=== PATIENT | female | born 1970 | race Caucasian/White ===

== ENCOUNTER 2017-05-07 14:40 | Emergency (ER) | payer OTHER ==
[2017-05-07 14:47] VITALS: BMI 34.5
--- NOTE | 2017-05-07 15:08 | DR.GENAD ---
HPI - PCP Primary Care Physician: Umesh LATHAM - HPI Comment HPI Comment: CURRENTLY BEING WEAN FROM EFFIXOR. SHE WAS TOLD THAT BELOW SYMTOMS WILL OCCUR. TODAY, SYMTOMS WORSE. PCP WANTED HER EVALUATED. DENIES FEVER. NO SEIZURE REPORTED. - Complaint/Symptoms Chief Complaint Doctors Comments: NAUSEA, VOMITING AND DIZZINESS FOR SEVERAL DAYS. Chief Complaint:: PT. STATES HER DOCTOR HAS TAKEN HER OFF OF HER EFFEXOR, GRADUALLY AND PT. HAS BEEN EXPERIENCING DT'S. PT. WAS ORIGINALLY ON EFFEXOR 300MG PO DAILY AND THE DOCTOR DECREASED IT TO 150MG PO DAILY WEEK 1, WEEK 2 WAS 75MG PO DAILY, AND THEN THE 3RD WEEK WAS 75MG EVERY OTHER DAY. PT. STATES SHE HAS BEEN HAVING N/V/D, DIZZINESS, HYPOTENSION, BLURRED VISION. SHE REC'D FLUIDS IN Umesh LATHAM OFFICE LAST SUNDAY. Umesh LATHAM RECOMMENED FOR PT. TO COME TO THE ER TO HAVE LAB WORK DONE. - Nurses notes reviewed Nurses Notes Review: Yes - Source History Provided: Patient - Mode of Arrival Mode of Arrival: Ambulatory - Timing Onset of Chief Complaint: 05/02/17 Came on: Suddenly - Duration Duration: Constant Duration: Days - Severity Severity: Moderate PMH - PMH Past Medical History: Yes Past Medical History: Anxiety, GERD, Headaches, Seizures Past Medical History Comment: FIBROMYALGIA, TACHYCARDIA Past Surgical History: Yes Surgical History: Hysterectomy, Ortho Surgery, Other - Family History History of Family Medical Conditions: No - Social History Does patient currently use any type of tobacco product: No Have you used tobacco products in the last 12 months: No Type of Tobacco Use: None Does any household member use tobacco: No Alcohol Use: None Do you use any recreational Drugs:: No Lives With: Spouse Lives Where: Home - infectious screening In the last 2 months have you had wt loss of >10#?: NO Have you had fever, night sweats or hemotysis?: No Have you traveled outside the country in the last 6 months?: No Isolation: Standard ROS - Review of Systems Constitutional: Weakness, Fatigue. negative: Chills, Fever Eyes: No Symptoms Reported. negative: Eye Pain, Discharge ENTM: No Symptoms Reported. negative: Ear Pain, Nose Discharge, Nose Congestion , Throat Pain Respiratoy: No Symptoms Reported. negative: Productive Cough, Short of Breath, Wheezing, Hemoptysis Cardiovascular: No Symptoms Reported. negative: Chest Pain Gastrointestinal/Abdominal: Abdominal Pain, Nausea, Vomiting Genitourinary: No Symptoms Reported. negative: Dysuria, Frequency, Hematuria Neurological: Headache, Weakness, Dizziness Musculoskeletal: No Symptoms Reported, Muscle Pain Integumentary: No Symptoms Reported Hematologic/Lymphatic: No Symptoms Reported Endocrine: No Symptoms Reported All Other Systems: Reviewed and Negative PE - Vital Signs Vitals: Temperature 98.5 F Pulse Rate [Standing] 81 Pulse Rate [Sitting] 72 Pulse Rate [Lying] 73 Pulse Rate 77 Respiratory Rate 17 Blood Pressure [Left Arm] 93/50 Blood Pressure [Right Arm] 122/68 Blood Pressure [Standing] 117/69 Blood Pressure [Sitting] 115/64 Blood Pressure [Lying] 115/59 Blood Pressure 105/69 O2 Sat by Pulse Oximetry 99 - General Limitations: No Limitations General Appearance: Alert - Head Head Exam: Normal Inspection - Eyes Eye exam: Normal Appearance - ENT ENT Exam: Normal External Ear Exam External Ear Exam: Normal External Inspection TM/Canal Exam: Bilateral Normal Nose Exam: Normal Nose Exam Mouth Exam: Normal Inspection Throat Exam: Normal Inspection - Neck Neck Exam: Trachea Midline - Chest Chest Inspection: Symmetric Chest Wall Rise - Respiratory Respiratory Exam: Normal Lung Sounds Bilat Respiratory Exam: Bilateral Clear to Auscultation - Cardiovascular Cardiovascular Exam: Regular Rate, Normal Rhythm, Normal Heart Sounds - Abdominal Exam Abdominal Exam: Normal Bowel Sounds, Soft. negative: Tenderness - Extremities Extremities Exam: Normal Inspection - Back Back Exam: Normal Inspection - Neurologic Neurological Exam: Alert, Oriented X3 - Psychiatric Psychiatric Exam: Normal Affect, Normal Mood - Skin Skin Exam: Normal Color MDM - Additional Information Additional Information Obtained From: Family - Differential Diagnosis Differential Diagnosis: ABDOMINAL PAIN, NAUSEA/VOMITING, DIZZINESS Course - Treatment Treatment: SEE ORDERS. - Reevaluation 1st: Unchanged - Education/Counseling Education/Counseling: Patient, Family, Education Educated On: Diagnosis, Needs for Follow Up ROR - Labs Reviewed Laboratory Results Reviewed?: Yes Result Diagrams: 05/07/17 15:20 05/07/17 15:20 Laboratory: WBC 6.6 X10^3/uL (3.6-10.0) 05/07/17 15:20 RBC 4.26 X10^6/uL (3.5-5.4) 05/07/17 15:20 Hgb 12.4 g/dL (12.0-16.0) 05/07/17 15:20 Hct 37.2 % (36.0-47.0) 05/07/17 15:20 MCV 87.2 fL (80.0-100.0) 05/07/17 15:20 MCH 29.1 pg (27.0-34.0) 05/07/17 15:20 MCHC 33.3 g/dL (33.0-35.0) 05/07/17 15:20 RDW 14.0 % (11.6-16.5) 05/07/17 15:20 Plt Count 256 X10^3/uL (150.0-450.0) 05/07/17 15:20 MPV 8.0 fL (7.4-11.0) 05/07/17 15:20 Neut % 51.2 % (42.0-75.0) 05/07/17 15:20 Lymph % 41.2 % (21.0-51.0) 05/07/17 15:20 [place] % 5.6 % (0.0-13.0) 05/07/17 15:20 Eos % 1.3 % (0.9-2.9) 05/07/17 15:20 Baso % 0.7 % (0.2-1.0) 05/07/17 15:20 Neut # 3.4 x10^3/uL (2.2-4.8) 05/07/17 15:20 Lymph # 2.7 X10^3/uL (1.3-2.9) 05/07/17 15:20 [place] # 0.4 x10^3/uL (0.3-0.8) 05/07/17 15:20 Eos # 0.1 x10^3/uL (0.0-0.2) 05/07/17 15:20 Baso # 0.0 X10^3/uL (0.0-0.1) 05/07/17 15:20 Absolute Nucleated RBC 0.1 /100WBC 05/07/17 15:20 Sodium 142 mmol/L (136-145) 05/07/17 15:20 Corrected Sodium 143 mmol/L (136-145) 05/07/17 15:20 Potassium 3.7 mmol/L (3.5-5.1) 05/07/17 15:20 Chloride 104 mmol/L (98-107) 05/07/17 15:20 Carbon Dioxide 26.7 mmol/L (21-32) 05/07/17 15:20 BUN 9 mg/dL (7-18) 05/07/17 15:20 Creatinine 1.02 mg/dL (0.55-1.02) 05/07/17 15:20 Est GFR (MDRD) Af Amer > 60 (>60) 05/07/17 15:20 Est GFR (MDRD) Non-Af > 60 (>60) 05/07/17 15:20 Glucose 150 mg/dL (65-99) H 05/07/17 15:20 Calcium 8.9 mg/dL (8.5-10.1) 05/07/17 15:20 Corrected Calcium TNP 05/07/17 15:20 Total Bilirubin 0.30 mg/dL (0.2-1.0) 05/07/17 15:20 AST 19 Units/L (15-37) 05/07/17 15:20 ALT 24 Units/L (12-78) 05/07/17 15:20 Alkaline Phosphatase 23 Units/L (46-116) L 05/07/17 15:20 Total Protein 7.5 g/dL (6.4-8.2) 05/07/17 15:20 Albumin 3.6 g/dL (3.4-5.0) 05/07/17 15:20 Globulin 3.9 g/dL (2.5-4.5) 05/07/17 15:20 Albumin/Globulin Ratio 0.9 Ratio (1.1-2.1) L 05/07/17 15:20 Amylase 32 Units/L (25-115) 05/07/17 15:20 Lipase 162 Units/L (73-393) 05/07/17 15:20 Specimen Type Clean catch urine 05/07/17:29 Urine Color Pale yellow (YELLOW) 05/07/17: Urine Appearance Clear (CLEAR) 05/07/17 15:29 Urine pH 6.0 (5.0 - 8.0) 05/07/17 15:29 Ur Specific [place] 1.010 (1.000-1.030) 05/07/17 15:29 Urine Protein Negative (NEGATIVE) 05/07/17 15:29 Urine Glucose (UA) Negative (NEGATIVE) 05/07/17 15:29 Urine Ketones Negative (NEGATIVE) 05/07/17 15:29 Urine Occult Blood Negative (NEGATIVE) 05/07/17 15:29 Urine Nitrite Negative (NEGATIVE) 05/07/17 15:29 Urine Bilirubin Negative (NEGATIVE) 05/07/17 15:29 Urine Urobilinogen Normal (NORMAL) 05/07/17 15:29 Ur Leukocyte Esterase Negative (NEGATIVE) 05/07/17 15:29 Urine RBC None seen /HPF (NEGATIVE) 05/07/17 15:29 Urine WBC None seen /HPF (NEGATIVE) 05/07/17 15:29 Ur Squamous Epith Cells Rare /HPF (NEGATIVE) 05/07/17 15:29 Amorphous Sediment Trace /HPF (NEGATIVE) 05/07/17 15:29 Urine Bacteria Trace /HPF (NEGATIVE) 05/07/17 15:29 Ur Culture Indicated? No/not indicated 05/07/17 15:29 - Diagnosis Discharge Problem: Dizziness Abdominal pain Qualifiers: Abdominal location: generalized Qualified Code(s): R10.84 - Generalized abdominal pain Nausea & vomiting Qualifiers: Vomiting type: bilious vomiting Qualified Code(s): R11.14 - Bilious vomiting - Discharge Plan Disposition: HOME, SELF-CARE Condition: Stable - Follow ups/Referrals Follow ups/Referrals: LOREN LATHAM [Primary Care Provider] - 3 days - Instructions Instructions: Nausea and Vomiting, Adult, [id number], Abdominal Pain, Adult, [id number]
[2017-05-07 15:29] LABS: BASOPHILS % (AUTO) 0.7 % (0.2-1.0); EOSINOPHILS # (AUTO) 0.1 x10^3/uL (0.0-0.2); EOSINOPHILS % (AUTO) 1.3 % (0.9-2.9); HEMATOCRIT 37.2 % (36.0-47.0); HEMOGLOBIN 12.4 g/dL (12.0-16.0); LYMPHOCYTES # (AUTO) 2.7 X10^3/uL (1.3-2.9); LYMPHOCYTES % (AUTO) 41.2 % (21.0-51.0); MEAN CORPUSCULAR HEMOGLOBIN 29.1 pg (27.0-34.0); MEAN CORPUSCULAR HGB CONC 33.3 g/dL (33.0-35.0); MEAN CORPUSCULAR VOLUME 87.2 fL (80.0-100.0); MONOCYTES # (AUTO) 0.4 x10^3/uL (0.3-0.8); MONOCYTES % (AUTO) 5.6 % (0.0-13.0); NEUTROPHILS # (AUTO) 3.4 x10^3/uL (2.2-4.8); NEUTROPHILS % (AUTO) 51.2 % (42.0-75.0); PLATELET COUNT 256 X10^3/uL (150.0-450.0); RED BLOOD COUNT 4.26 X10^6/uL (3.5-5.4); WHITE BLOOD COUNT 6.6 X10^3/uL (3.6-10.0)
[2017-05-07 15:41] LABS: ALANINE AMINOTRANSFERASE 24 Units/L (12-78); ALBUMIN 3.6 g/dL (3.4-5.0); ALKALINE PHOSPHATASE 23 Units/L (46-116); AMYLASE 32 Units/L (25-115); ASPARTATE AMINO TRANSFERASE 19 Units/L (15-37); BLOOD UREA NITROGEN 9 mg/dL (7-18); CALCIUM 8.9 mg/dL (8.5-10.1); CARBON DIOXIDE 26.7 mmol/L (21-32); CHLORIDE 104 mmol/L (98-107); COR NA(FOR HYPERGLY) 143 mmol/L (136-145); CREATININE 1.02 mg/dL (0.55-1.02); LIPASE 162 Units/L (73-393); SODIUM 142 mmol/L (136-145); TOTAL PROTEIN 7.5 g/dL (6.4-8.2); eGFR BLACK RACES > 60 (>60); eGFR NON BLACK RACES > 60 (>60)
[2017-05-07 15:42] LABS: BILIRUBIN,URINE NEGATIVE (NEGATIVE); BLOOD/HEMOGLOBIN,URINE NEGATIVE (NEGATIVE); GLUCOSE, URINE NEGATIVE (NEGATIVE); KETONES,URINE NEGATIVE (NEGATIVE); LEUKOCYTE ESTERASE ,URINE NEGATIVE (NEGATIVE); NITRITES,URINE NEGATIVE (NEGATIVE); PROTEIN,URINE NEGATIVE (NEGATIVE); UROBILINOGEN,URINE NORMAL (NORMAL)
[2017-05-07 15:51] LABS: AMORPHOUS SEDIMENT,UR TRACE /HPF (NEGATIVE); APPEARANCE,URINE CLEAR (CLEAR); BACTERIA,URINE TRACE /HPF (NEGATIVE); COLOR,URINE PALE YELLOW (YELLOW); RBC,URINE NONE SEEN /HPF (NEGATIVE); SQUAMOUS EPITHELIAL CELL,UR RARE /HPF (NEGATIVE)
[2017-05-07 16:10] VITALS: BP 115/59
== END 2017-05-07 16:20 | disposition home or self-care (01) ==
LOC: ER 14:51
DX: R11.14 Bilious vomiting (principal); R10.84 Generalized abdominal pain; R42 Dizziness and giddiness
CPT/HCPCS: 36415; 80053; 81001; 82150; 83690; 85025; 99282

== ENCOUNTER → 2017-06-19 | Outpatient (CLI) | payer OTHER ==
--- NOTE | 2017-06-22 14:57 | MG ---
HISTORY: SCREENING Comparison: August 12, 2008 and December 27, 2015 FINDINGS: Bilateral CC and MLO projections of the right and left breast were obtained. Scattered fibroglandula r tissue is seen to be present with overall diffuse increased density bilaterally as compared to the priors most compatible with weight loss but with possible underlying developing asymmetry at 12 o'trevon ck on the right with similar but less prominent findings on the left as well where there are interven ing foci of lucency but with a possible underlying nodule on the right with convex borders and for wh ich further imaging evaluation is recommended. There is no architectural distortion. No skin thicke jenny or nipple retraction is appreciated. No pathological lymphadenopathy can be identified. Benign -appearing calcifications are noted within the right and left breast. IMPRESSION: Possible developing asymmetry 12 o'clock right breast as detailed above for which follow -up spot compression and possibly ultrasound are recommended. ACR CATEGORY 0 - assessment incomplete; additional imaging recommended. Diagnostic CAD was utilized and reviewed. * 0 (ZERO) - ASSESSMENT INCOMPLETE; ADDITIONAL IMAGING IS NEEDED. * 1/1 (ONE) - NEGATIVE. * 2/II (TWO) - BENIGN FINDINGS. * 3/III (THREE) - PROBABLY BENIGN FINDING; SHORT INTERVAL FOLLOW-UP SUGGESTED. * 4/IV (FOUR) - SUSPICIOUS ABNORMALITY; BIOPSY SHOULD BE CONSIDERED. * 5/V - HIGHLY SUSPICIOUS OF MALIGNANCY; BIOPSY SHOULD BE PERFORMED. A NEGATIVE X-RAY REPORT SHOULD NOT DELAY BIOPSY IF A DOMINANT OR CLINICALLY SUSPICIOUS MASS IS PRESENT; 4 TO 8 PERCENT OF CANCERS ARE NOT IDENTIFIED BY X-RAY. A NEGA TIVE REPORT MAY REINFORCE THE CLINICAL IMPRESSION. ADENOSIS AND DENSE BREASTS MAY OBSCURE AN UNDERLY ING NEOPLASM. Reported By:
== END ==
LOC: RAD 09:17
PROVIDERS: ATTEND Nurse Practitioner
DX: Z12.31 Encounter for screening mammogram for malignant neoplasm of breast (principal); R92.8 Other abnormal and inconclusive findings on diagnostic imaging of breast
CPT/HCPCS: 77067

== ENCOUNTER → 2017-07-24 | Outpatient (CLI) | payer OTHER ==
--- NOTE | 2017-07-24 16:08 | US ---
HISTORY: Abnormal screening mammography with right breast developing asymmetry Right breast digital diagnostic mammography with CAD and right breast ultrasound. Comparison: Multiple previous exams dating back to 2008 FINDINGS: Mammogram: Spot compression and mL views of the right breast were obtained. Heterogeneously dense fi broglandular tissue is seen to be present with the previously described developing asymmetry dispersi ng with intervening foci of lucency without an underlying mass or architectural distortion and with f indings favored to be related to overall changes in glandular composition bilaterally but which will be correlated with ultrasound to exclude a more aggressive focal underlying lesion. There is no darryl nant suspicious mass or architectural distortion. No skin thickening or nipple retraction is appreci ated. No pathological lymphadenopathy can be identified. Benign-appearing calcifications are noted. Ultrasound: Multiple grayscale images were obtained at 12 o'clock. There is dense fibrocystic breast parenchyma without a suspicious cystic or solid nodule identified. IMPRESSION: NO RADIOGRAPHIC EVIDENCE OF MALIGNANCY. ACR CATEGORY 2 - benign findings. FOLLOW-UP EXAM 1 YEAR. Diagnostic CAD was utilized and reviewed. * 0 (ZERO) - ASSESSMENT INCOMPLETE; ADDITIONAL IMAGING IS NEEDED. * 1/1 (ONE) - NEGATIVE. * 2/II (TWO) - BENIGN FINDINGS. * 3/III (THREE) - PROBABLY BENIGN FINDING; SHORT INTERVAL FOLLOW-UP SUGGESTED. * 4/IV (FOUR) - SUSPICIOUS ABNORMALITY; BIOPSY SHOULD BE CONSIDERED. * 5/V - HIGHLY SUSPICIOUS OF MALIGNANCY; BIOPSY SHOULD BE PERFORMED. A NEGATIVE X-RAY REPORT SHOULD NOT DELAY BIOPSY IF A DOMINANT OR CLINICALLY SUSPICIOUS MASS IS PRESENT; 4 TO 8 PERCENT OF CANCERS ARE NOT IDENTIFIED BY X-RAY. A NEGA TIVE REPORT MAY REINFORCE THE CLINICAL IMPRESSION. ADENOSIS AND DENSE BREASTS MAY OBSCURE AN UNDERLY ING NEOPLASM. Reported By:
== END ==
LOC: RAD 12:42
PROVIDERS: ATTEND Nurse Practitioner Family
DX: N64.59 Other signs and symptoms in breast (principal)
CPT/HCPCS: 76642; 77065

== ENCOUNTER 2018-09-17 18:30 | Inpatient (IN) ==
[2018-09-17] MEDS ORDERED: HEPARIN SODIUM IN D5W 25,000 UNITS/500 ML BAG IV PRN (19:44)
[2018-09-17 20:09] VITALS: BMI 31.1
[2018-09-17 20:21] LABS: BASOPHILS % (AUTO) 0.6 % (0.2-1.0); EOSINOPHILS # (AUTO) 0.1 x10^3/uL (0.0-0.2); EOSINOPHILS % (AUTO) 1.9 % (0.9-2.9); HEMOGLOBIN 12.8 g/dL (12.0-16.0); LYMPHOCYTES # (AUTO) 1.7 X10^3/uL (1.3-2.9); LYMPHOCYTES % (AUTO) 24.1 % (21.0-51.0); MEAN CORPUSCULAR HEMOGLOBIN 28.7 pg (27.0-34.0); MEAN CORPUSCULAR HGB CONC 32.9 g/dL (33.0-35.0); MEAN PLATELET VOLUME 8.6 fL (7.4-11.0); MONOCYTES # (AUTO) 0.5 x10^3/uL (0.3-0.8); NEUTROPHILS # (AUTO) 4.7 x10^3/uL (2.2-4.8); NEUTROPHILS % (AUTO) 66.4 % (42.0-75.0); PLATELET COUNT 277 X10^3/uL (150.0-450.0); RED BLOOD COUNT 4.48 X10^6/uL (3.5-5.4); RED CELL DISTRIBUTION WIDTH 13.6 % (11.6-16.5); WHITE BLOOD COUNT 7.1 X10^3/uL (3.6-10.0)
[2018-09-17 20:28] LABS: ALANINE AMINOTRANSFERASE 21 Units/L (12-78); ALBUMIN 3.7 g/dL (3.4-5.0); ALKALINE PHOSPHATASE 22 Units/L (46-116); ASPARTATE AMINO TRANSFERASE 15 Units/L (15-37); BLOOD UREA NITROGEN 10 mg/dL (7-18); CALCIUM 9.1 mg/dL (8.5-10.1); CHLORIDE 107 mmol/L (98-107); CREATININE 0.97 mg/dL (0.55-1.02); SODIUM 143 mmol/L (136-145); TOTAL PROTEIN 7.4 g/dL (6.4-8.2); eGFR NON BLACK RACES > 60 (>60)
[2018-09-17] MEDS: NS 1000 ML 1,000 ML IV SCH (20:34)
[2018-09-17] MEDS ORDERED: HEPARIN SODIUM INJ 5000 UNITS ONE (21:12)
[2018-09-17] MEDS: HEPARIN SODIUM INJ 5000 UNITS IVP ONE ×2 (21:16→21:29)
[2018-09-17] MEDS: HEPARIN SODIUM IN D5W 25,000 UNITS/500 ML BAG IV PRN (21:18)
[2018-09-18] MEDS: NS 1000 ML 1,000 ML IV SCH ×3 (04:30→21:44)
[2018-09-18 04:35] LABS: BASOPHILS % (AUTO) 0.6 % (0.2-1.0); EOSINOPHILS # (AUTO) 0.1 x10^3/uL (0.0-0.2); EOSINOPHILS % (AUTO) 2.2 % (0.9-2.9); HEMOGLOBIN 10.9 g/dL (12.0-16.0); LYMPHOCYTES # (AUTO) 2.4 X10^3/uL (1.3-2.9); LYMPHOCYTES % (AUTO) 39.7 % (21.0-51.0); MEAN CORPUSCULAR HEMOGLOBIN 28.4 pg (27.0-34.0); MEAN CORPUSCULAR HGB CONC 32.1 g/dL (33.0-35.0); MEAN CORPUSCULAR VOLUME 88.5 fL (80.0-100.0); MEAN PLATELET VOLUME 8.6 fL (7.4-11.0); MONOCYTES # (AUTO) 0.6 x10^3/uL (0.3-0.8); MONOCYTES % (AUTO) 9.1 % (0.0-13.0); NEUTROPHILS % (AUTO) 48.4 % (42.0-75.0); PLATELET COUNT 259 X10^3/uL (150.0-450.0); RED BLOOD COUNT 3.84 X10^6/uL (3.5-5.4); RED CELL DISTRIBUTION WIDTH 13.4 % (11.6-16.5); WHITE BLOOD COUNT 6.1 X10^3/uL (3.6-10.0)
[2018-09-18 04:42] LABS: ALANINE AMINOTRANSFERASE 18 Units/L (12-78); ALKALINE PHOSPHATASE 18 Units/L (46-116); ASPARTATE AMINO TRANSFERASE 13 Units/L (15-37); BLOOD UREA NITROGEN 12 mg/dL (7-18); CALCIUM 8.3 mg/dL (8.5-10.1); CARBON DIOXIDE 24.6 mmol/L (21-32); CHLORIDE 108 mmol/L (98-107); COR CA(FOR HYPOALB) 9.1 mg/dL (8.5-10.1); COR NA(FOR HYPERGLY) 143 mmol/L (136-145); CREATININE 1.04 mg/dL (0.55-1.02); SODIUM 142 mmol/L (136-145); TOTAL PROTEIN 6.1 g/dL (6.4-8.2); eGFR NON BLACK RACES > 60 (>60)
[2018-09-18] MEDS ORDERED: POTASSIUM CHL 40 MEQ/NS 0.45% 500 ML IV PRN (06:31)
[2018-09-18] MEDS ORDERED: POTASSIUM CHL 60 MEQ/NS 0.45% 500 ML IV PRN (06:31)
[2018-09-18] MEDS ORDERED: KLOR-CON PO PRN (06:31)
[2018-09-18] MEDS ORDERED: K-DUR TAB 20 MEQ PO PRN (06:31)
[2018-09-18] MEDS ORDERED: POTASSIUM CHLORIDE LIQ 20 MEQ UDC PO PRN (06:31)
[2018-09-18] MEDS ORDERED: MICRO K EXTEN CAP 10 MEQ PO PRN (06:31)
[2018-09-18] MEDS ORDERED: K-RIDER 10 MEQ/NS 100 ML 10 MEQ/100 ML BAG IV PRN (06:31)
[2018-09-18] MEDS ORDERED: NS 250 ML IV 250 ML ONE (08:25)
[2018-09-18] MEDS: MAGNESIUM SULFATE 1 GRAM/100 mL PREMIX 1 GM/100 ML BAG IV PRN ×2 (08:30→09:34)
[2018-09-18] MEDS ORDERED: KLONOPIN TAB 1 MG PO PRN (10:59)
[2018-09-18] MEDS ORDERED: ZOFRAN TAB 4 MG PO PRN (10:59)
[2018-09-18] MEDS ORDERED: NORCO 10/325 TAB PO SCH (11:00)
[2018-09-18] MEDS ORDERED: CHOLECALCIFEROL PO SCH (11:00)
[2018-09-18] MEDS ORDERED: ZANAFLEX PO SCH (11:00)
[2018-09-18] MEDS ORDERED: DESYREL PO SCH (11:00)
[2018-09-18] MEDS ORDERED: KLONOPIN TAB 1 MG PO SCH (11:00)
[2018-09-18] MEDS ORDERED: PREDNISONE TAB 10 MG PO ONE (11:05)
[2018-09-18] MEDS ORDERED: PREDNISONE TAB 10 MG ONE (11:05)
[2018-09-18] MEDS ORDERED: PREDNISONE TAB 20 MG PO ONE ×2 (11:05)
--- NOTE | 2018-09-18 11:31 | DR.UPDATE ---
H&P Update History and Physical Update: History and Physical reviewed and patient examined. Changes noted: Yes with the following: PRESENTED TO THE OFFICE TODAY WITH COMPLAINTS OF SEVERE RIGHT ARM PAIN AND SWELLING. SHE DENIED FEVER, CHILLS, OR KNOWN INJURY. SHE WAS SENT FOR AN OUTPATIENT VENOUS DOPPLER WHICH REVEALED AN ACUTE DVT SEEN THROUGH THE RIGHT BASILIC VEIN. SHE WAS ADMITTED FOR FURTHER EVALUATION AND TREATMENT OF DVT AND STARTED ON A HEPARIN DRIP. A H&P WAS COMPLETED IN THE OFFICE TODAY. PATIENT HAS BEEN SEEN AND EXAMINED WITH NO OTHER CHANGES NOTED TO H&P.
[2018-09-18] MEDS: ASPIRIN 81 MG CHEWTAB PO SCH (12:08)
[2018-09-18] MEDS: BENTYL CAP 10 MG PO SCH ×4 (12:09→20:03)
--- NOTE | 2018-09-18 12:14 | PCM.PROG ---
Progress Note - Progress Note for Day of Date of Exam: 09/18/18 - Subjective Subjective: WAS ADMITTED FOR A RIGHT UPPER EXTREMITY DVT. TODAY, SHE IS ALERT AND ORIENTED, LYING IN BED ON MORNING ROUNDS. SHE CONTINUES WITH COMPLAINTS OF RIGHT ARM PAIN AND SHORTNESS OF BREATH. ON EXAMINATION, HEART IS REGULAR IN RATE AND RHYTHM. BILATERAL LUNGS ARE NOTED WITH DIMINISHED LUNG SOUNDS THROUGHOUT. ABDOMENT IS ROUND, SOFT, AND NON-TENDER WITH NORMAL BOWEL SOUNDS NOTED IN ALL QUADRANTS. RIGHT UPPER ARM IS NOTED WITH REDNESS AND SWELLING. IT IS TENDER TO PALPATION. HER VITALS THIS MORNING ARE 98.7-75-15-99%-95/54. ABNORMAL LAB VALUES TODAY INCLUDE THE FOLLOWING: HGB 10.9, HCT 34.0, PTT 119.6, POTASSIUM 3.3, CHLORIDE 108, CREATININE 1.04, GLUCOSE 151, CALCIUM 8.3, TOTAL BILI 0.10, ALK PHOS 18, TOTAL PROTEIN 6.1, ALBUMIN 3.0. SHE HAS BEEN HYPOTENSIVE THROUGHOUT THE NIGHT. TODAY, WE WILL RESUME HOME MEDICATIONS WITH THE EXCEPTION OF HER BLOOD PRESSURE MEDICATIONS. WE WILL OBTAIN A CHEST CT WITH CONTRAST TO RULE OUT PE. SHE IS ALLERGIC TO IODINE, THEREFORE, WE WILL HAVE TO DO THE 13 HOUR PREDNISONE PREP. OTHERWISE, WE WILL CONTINUE WITH THE IV HEPARIN DRIP. WE WILL FOLLOW UP WITH AM LABS AND CONTINUE TO [facility]. - Past Medical Family Social History Past Med/Fam/Surg Hx: No changes since H&P Allergies: Allergies ciprofloxacin [From Cipro] Allergy (Verified 05/07/17 14:46) codeine Allergy (Verified 05/07/17 14:46) iodine Allergy (Verified 05/07/17 14:46) Sulfa (Sulfonamide Antibiotics) Allergy (Verified 05/07/17 14:46) - Review of Systems ROS: No change since H&P - Vital Signs and I&O's Vital Signs: Temperature 98.2 F Pulse Rate [Bilateral Radial] 81 Respiratory Rate 19 Blood Pressure [Left Arm] 103/57 Blood Pressure [Right Arm] 122/68 Blood Pressure [Standing] 117/69 Blood Pressure [Sitting] 115/64 Blood Pressure [Lying] 115/59 Blood Pressure 115/59 O2 Sat by Pulse Oximetry 93 Intake and Output: Intake & Output 09/16/18 09/17/18 09/18/18 09/19/18 11:59 11:59 11:59 11:59 Intake Total 2724.2 / 2724.2 600 / 600 Balance 2724.2 / 2724.2 600 / 600 - Physical Exam Oriented: Normal Eyes: Normal Ear: Normal Nose: Normal Throat: Normal Respiratory: Generalized, Diminished Cardiovascular: Normal. negative: S3, S4, Edema : Normal Auscultation: Bowel Sounds: Normal Palpation: Normal Tenderness: Normal Skin: Red (RIGHT UPPER ARM ), Tender Musculoskeletal: Right, Arm, Swelling, Tender Psychiatric: Normal Mood Description: Calm Affect: Normal Speech Pattern: Clear - Laboratory and Diagnostics Result Diagrams: 09/18/18 04:20 09/18/18 04:20 Labs: Laboratory WBC 6.1 X10^3/uL (3.6-10.0) 09/18/18 04:20 RBC 3.84 X10^6/uL (3.5-5.4) 09/18/18 04:20 Hgb 10.9 g/dL (12.0-16.0) L 09/18/18 04:20 Hct 34.0 % (36.0-47.0) L 09/18/18 04:20 MCV 88.5 fL (80.0-100.0) 09/18/18 04:20 MCH 28.4 pg (27.0-34.0) 09/18/18 04:20 MCHC 32.1 g/dL (33.0-35.0) L 09/18/18 04:20 RDW 13.4 % (11.6-16.5) 09/18/18 04:20 Plt Count 259 X10^3/uL (150.0-450.0) 09/18/18 04:20 MPV 8.6 fL (7.4-11.0) 09/18/18 04:20 Neut % (Auto) 48.4 % (42.0-75.0) 09/18/18 04:20 Lymph % (Auto) 39.7 % (21.0-51.0) 09/18/18 04:20 [place] % (Auto) 9.1 % (0.0-13.0) 09/18/18 04:20 Eos % (Auto) 2.2 % (0.9-2.9) 09/18/18 04:20 Baso % (Auto) 0.6 % (0.2-1.0) 09/18/18 04:20 Neut # (Auto) 3.0 x10^3/uL (2.2-4.8) 09/18/18 04:20 Lymph # (Auto) 2.4 X10^3/uL (1.3-2.9) 09/18/18 04:20 [place] # (Auto) 0.6 x10^3/uL (0.3-0.8) 09/18/18 04:20 Eos # (Auto) 0.1 x10^3/uL (0.0-0.2) 09/18/18 04:20 Baso # (Auto) 0.0 X10^3/uL (0.0-0.1) 09/18/18 04:20 Absolute Nucleated RBC 0.0 /100WBC 09/18/18 04:20 INR Target Range - 09/17/18 20:01 INR 1.01 (0.8-1.3) 09/17/18 20:01 APTT 119.6 SECONDS (22.9-36.5) H 09/18/18 04:20 PTT Comment - 09/18/18 04:20 Sodium 142 mmol/L (136-145) 09/18/18 04:20 Corrected Sodium 143 mmol/L (136-145) 09/18/18 04:20 Potassium 3.3 mmol/L (3.5-5.1) L 09/18/18 04:20 Chloride 108 mmol/L (98-107) H 09/18/18 04:20 Carbon Dioxide 24.6 mmol/L (21-32) 09/18/18 04:20 BUN 12 mg/dL (7-18) 09/18/18 04:20 Creatinine 1.04 mg/dL (0.55-1.02) H 09/18/18 04:20 Est GFR (MDRD) Af Amer > 60 (>60) 09/18/18 04:20 Est GFR (MDRD) Non-Af > 60 (>60) 09/18/18 04:20 Glucose 151 mg/dL (65-99) H 09/18/18 04:20 Calcium 8.3 mg/dL (8.5-10.1) L 09/18/18 04:20 Corrected Calcium 9.1 mg/dL (8.5-10.1) 09/18/18 04:20 Magnesium 1.7 mg/dL (1.7-2.9) 09/18/18 04:20 Total Bilirubin 0.10 mg/dL (0.2-1.0) L 09/18/18 04:20 AST 13 Units/L (15-37) L 09/18/18 04:20 ALT 18 Units/L (12-78) 09/18/18 04:20 Alkaline Phosphatase 18 Units/L (46-116) L 09/18/18 04:20 Total Protein 6.1 g/dL (6.4-8.2) L 09/18/18 04:20 Albumin 3.0 g/dL (3.4-5.0) L 09/18/18 04:20 Globulin 3.1 g/dL (2.5-4.5) 09/18/18 04:20 Albumin/Globulin Ratio 1.0 Ratio (1.1-2.1) L 09/18/18 04:20 - Plan (1) Acute deep vein thrombosis (DVT) of right upper extremity Status: Acute Qualifiers: Affected thrombotic vein of extremity: brachial Qualified Code(s): I82.621 - Acute embolism and thrombosis of deep veins of right upper extremity Plan: HEPARIN DRIP, OBTAIN CHEST CT TO RULE OUT PE, CONTINUE TO MONITOR (2) SOB (shortness of breath) Status: Acute (3) Hypotension Status: Acute Qualifiers: Hypotension type: unspecified hypotension type Qualified Code(s): I95.9 - Hypotension, unspecified Plan: CONTINUE IV FLUIDS, OBTAIN CHEST CT, CONTINUE TO MONITOR
[2018-09-18] MEDS: PLAQUENIL PO SCH ×2 (12:15→20:04)
[2018-09-18] MEDS: PriLOSEC PO SCH ×2 (12:16→20:04)
[2018-09-18] MEDS: REGLAN SYRUP 10 MG UDC PO SCH ×4 (12:16→20:04)
[2018-09-18] MEDS: TRICOR TAB 145 MG PO SCH (12:24)
[2018-09-18] MEDS: LEVOMILNACIPRAN PO SCH ×2 (12:25)
[2018-09-18] MEDS: LANOXIN PO SCH (14:48)
[2018-09-18] MEDS ORDERED: HEPARIN SODIUM INJ 5000 UNITS ONE (14:52)
[2018-09-18] MEDS ORDERED: HEPARIN SODIUM INJ 5000 UNITS IVP ONE ×2 (14:58→22:41)
[2018-09-18] MEDS ORDERED: PREDNISONE TAB 20 MG PO NR ×2 (18:00→23:00)
[2018-09-18] MEDS ORDERED: PREDNISONE TAB 10 MG PO NR ×2 (18:00→23:00)
[2018-09-18] MEDS: CARIPRAZINE PO SCH (20:04)
[2018-09-18] MEDS ORDERED: BENADRYL CAP 50 MG PO NR (23:00)
[2018-09-18] MEDS: HEPARIN SODIUM IN D5W 25,000 UNITS/500 ML BAG IV PRN (23:35)
--- NOTE | 2018-09-19 04:00 | CT ---
CTA chest Indication: Hypotension, right upper arm DVT Technique: Helical CT images of the chest were obtained with IV contrast. Reformatted images in the coronal and sagittal planes and 3D MIP images were also generated for review. Comparison: None Findings: Contrast bolus timing is adequate for detection of PTE. There are pulmonary thromboemboli at the bifurcations of the bilateral main pulmonary arteries with thrombus extension into the segmental pulmonary artery branches of all lobes bilaterally. There is no pulmonary arterial dilatation or evidence of right heart strain. The heart is normal in size without pericardial effusion. The thoracic aorta and proximal great vessels are normal in contour and caliber. The central airways are patent. There is no mediastinal or bulky hilar lymphadenopathy. Apart from mild dependent subsegmental atelectasis, the lungs are clear without focal consolidation. No pleural effusion or pneumothorax is identified. Limited images through the upper abdomen demonstrate no acute abnormality. No aggressive osseous lesions are identified. Impression: Positive for saddle pulmonary emboli at the main bilateral pulmonary artery bifurcations with thrombus extension into the segmental pulmonary arteries of all lobes bilaterally. The above findings were discussed with TALIA Tello by Dr. Luna via telephone at 3:30 a.m. 09/19/2018. Reported By:
[2018-09-19 05:04] LABS: BASOPHILS % (AUTO) 0.1 % (0.2-1.0); HEMATOCRIT 36.8 % (36.0-47.0); HEMOGLOBIN 12.2 g/dL (12.0-16.0); LYMPHOCYTES # (AUTO) 0.6 X10^3/uL (1.3-2.9); LYMPHOCYTES % (AUTO) 9.6 % (21.0-51.0); MEAN CORPUSCULAR HEMOGLOBIN 28.7 pg (27.0-34.0); MEAN CORPUSCULAR VOLUME 86.9 fL (80.0-100.0); MEAN PLATELET VOLUME 8.6 fL (7.4-11.0); MONOCYTES # (AUTO) 0.2 x10^3/uL (0.3-0.8); MONOCYTES % (AUTO) 3.3 % (0.0-13.0); NEUTROPHILS # (AUTO) 5.8 x10^3/uL (2.2-4.8); PLATELET COUNT 274 X10^3/uL (150.0-450.0); RED BLOOD COUNT 4.24 X10^6/uL (3.5-5.4); RED CELL DISTRIBUTION WIDTH 13.6 % (11.6-16.5); WHITE BLOOD COUNT 6.6 X10^3/uL (3.6-10.0)
[2018-09-19] MEDS: NS 1000 ML 1,000 ML IV SCH ×3 (05:12→12:40)
[2018-09-19 05:15] LABS: ALANINE AMINOTRANSFERASE 21 Units/L (12-78); ALBUMIN 3.3 g/dL (3.4-5.0); ALKALINE PHOSPHATASE 19 Units/L (46-116); ASPARTATE AMINO TRANSFERASE 14 Units/L (15-37); BLOOD UREA NITROGEN 5 mg/dL (7-18); CALCIUM 8.9 mg/dL (8.5-10.1); CARBON DIOXIDE 21.1 mmol/L (21-32); CHLORIDE 110 mmol/L (98-107); COR CA(FOR HYPOALB) 9.5 mg/dL (8.5-10.1); COR NA(FOR HYPERGLY) 146 mmol/L (136-145); CREATININE 0.94 mg/dL (0.55-1.02); SODIUM 144 mmol/L (136-145); TOTAL PROTEIN 7.1 g/dL (6.4-8.2); eGFR NON BLACK RACES > 60 (>60)
[2018-09-19] MEDS ORDERED: ZANAFLEX PO SCH (09:00)
[2018-09-19] MEDS: BENTYL CAP 10 MG PO SCH ×4 (10:14→21:00)
[2018-09-19] MEDS: LANOXIN PO SCH (10:15)
[2018-09-19] MEDS: TRICOR TAB 145 MG PO SCH (10:15)
[2018-09-19] MEDS: PLAQUENIL PO SCH ×2 (10:15→21:00)
[2018-09-19] MEDS: PriLOSEC PO SCH ×2 (10:15→21:00)
[2018-09-19] MEDS: ASPIRIN 81 MG CHEWTAB PO SCH (10:15)
[2018-09-19] MEDS: REGLAN SYRUP 10 MG UDC PO SCH ×4 (10:16→21:00)
[2018-09-19] MEDS: TOPIRAMATE PO SCH (10:17)
[2018-09-19] MEDS: LEVOMILNACIPRAN PO SCH (10:18)
--- NOTE | 2018-09-19 10:43 | VAS ---
VENOUS ULTRASOUND DOPPLER EXAMINATION OF THE BILATERAL LOWER EXTREMITIES HISTORY: History of PE Comparison: None TECHNIQUE: Multiple frank scale and color flow Doppler images of the deep venous system were obtained of the right and left lower extremity. FINDINGS: The deep venous system of the right and left lower extremities were evaluated from the level of the common femoral vein through the popliteal vein. There is a partially occlusive thrombus in the right mid femoral vein. Left lower extremities unremarkable. IMPRESSION: 1. Partially occlusive right mid femoral vein DVT. Reported By:
[2018-09-19] MEDS: XARELTO PO SCH ×2 (11:34→21:00)
[2018-09-19 12:26] LABS: ERYTHROCYTE SEDIMENTATION RATE 20 MM/HOUR (0-20)
[2018-09-19] MEDS: CARIPRAZINE PO SCH (21:00)
[2018-09-20] MEDS: NS 1000 ML 1,000 ML IV SCH ×3 (00:08→11:08)
[2018-09-20 06:08] LABS: BASOPHILS % (AUTO) 0.5 % (0.2-1.0); EOSINOPHILS # (AUTO) 0.1 x10^3/uL (0.0-0.2); EOSINOPHILS % (AUTO) 0.9 % (0.9-2.9); HEMATOCRIT 35.2 % (36.0-47.0); HEMOGLOBIN 11.6 g/dL (12.0-16.0); LYMPHOCYTES # (AUTO) 2.6 X10^3/uL (1.3-2.9); LYMPHOCYTES % (AUTO) 41.4 % (21.0-51.0); MEAN CORPUSCULAR HEMOGLOBIN 28.6 pg (27.0-34.0); MEAN CORPUSCULAR VOLUME 86.8 fL (80.0-100.0); MEAN PLATELET VOLUME 8.5 fL (7.4-11.0); MONOCYTES # (AUTO) 0.5 x10^3/uL (0.3-0.8); NEUTROPHILS # (AUTO) 3.2 x10^3/uL (2.2-4.8); NEUTROPHILS % (AUTO) 50.2 % (42.0-75.0); PLATELET COUNT 267 X10^3/uL (150.0-450.0); RED BLOOD COUNT 4.06 X10^6/uL (3.5-5.4); RED CELL DISTRIBUTION WIDTH 13.4 % (11.6-16.5); WHITE BLOOD COUNT 6.4 X10^3/uL (3.6-10.0)
[2018-09-20 06:18] LABS: ALANINE AMINOTRANSFERASE 20 Units/L (12-78); ALBUMIN 3.1 g/dL (3.4-5.0); ALKALINE PHOSPHATASE 20 Units/L (46-116); ASPARTATE AMINO TRANSFERASE 13 Units/L (15-37); BLOOD UREA NITROGEN 9 mg/dL (7-18); CALCIUM 8.6 mg/dL (8.5-10.1); CARBON DIOXIDE 24.1 mmol/L (21-32); CHLORIDE 110 mmol/L (98-107); COR CA(FOR HYPOALB) 9.3 mg/dL (8.5-10.1); SODIUM 145 mmol/L (136-145); TOTAL PROTEIN 6.4 g/dL (6.4-8.2); eGFR NON BLACK RACES > 60 (>60)
--- NOTE | 2018-09-20 08:39 | PCM.PROG ---
Progress Note - Progress Note for Day of Date of Exam: 09/19/18 - Subjective Subjective: WAS ADMITTED FOR A RIGHT UPPER EXTREMITY DVT. TODAY, SHE IS ALERT AND ORIENTED, LYING IN BED ON MORNING ROUNDS. SHE CONTINUES WITH COMPLAINTS OF RIGHT ARM PAIN AND SHORTNESS OF BREATH. ON EXAMINATION, HEART IS REGULAR IN RATE AND RHYTHM. BILATERAL LUNGS ARE NOTED WITH DIMINISHED LUNG SOUNDS THROUGHOUT. ABDOMENT IS ROUND, SOFT, AND NON-TENDER WITH NORMAL BOWEL SOUNDS NOTED IN ALL QUADRANTS. RIGHT UPPER ARM IS NOTED WITH REDNESS AND SWELLING. IT IS TENDER TO PALPATION. HER VITALS THIS MORNING ARE 98.7-96-22-94%-147/75. ABNORMAL LAB VALUES TODAY INCLUDE THE FOLLOWING: CHLORIDE 110, BUN 5, GLUCOSE 166, TOTAL BILI 0.10, AST 14, ALK PHOS 19, CRP 32.40, ALBUMIN 3.3. SHE HAS BEEN HYPOTENSIVE THROUGHOUT THE NIGHT. WE OBTAINED A CHEST CT WITHOUT CONTRAST LAST NIGHT WHICH REVEALED: Positive for saddle pulmonary emboli at the main bilateral pulmonary artery bifurcations with thrombus extension into the segmental pulmonary arteries of all lobes bilaterally. BILATERAL LOWER EXTREMITY VENOUS DOPPLER STUDY OBTAINED THIS MORNING AND REVEALED: Partially occlusive right mid femoral vein DVT. SHE IS CURRENTLY ON A HEPARIN DRIP. TODAY, WE WILL D/C THE HEPARIN DRIP AND THEN START XARELTO 15MG PO BID. WE WILL OBTAIN A HYPERCOAG PANEL AND OBTAIN AN ECHO. OTHERWISE, WE WILL FOLLOW UP WITH AM LABS AND CONTINUE TO [facility]. - Past Medical Family Social History Past Med/Fam/Surg Hx: No changes since H&P Allergies: Allergies amoxicillin Allergy (Severe, Verified 09/19/18 01:36) ANAPHALEXIS REACTION ciprofloxacin [From Cipro] Allergy (Severe, Verified 09/19/18 01:36) ANAPHALEXIS REACTION iodine Allergy (Severe, Verified 09/19/18 01:36) ANAPHALEXIS REACTION Penicillins Allergy (Severe, Verified 09/19/18 01:36) ANAPHALEXIS REACTION shellfish derived Allergy (Severe, Verified 09/19/18 01:36) ANAPHALEXIS REACTION Sulfa (Sulfonamide Antibiotics) Allergy (Severe, Verified 09/19/18 01:36) ANAPHALEXIS REACTION codeine Allergy (Verified 09/19/18 01:36) RASH - Review of Systems ROS: No change since H&P - Vital Signs and I&O's Vital Signs: Temperature 98.5 F Pulse Rate [Bilateral Radial] 70 Pulse Rate 73 Respiratory Rate 15 Blood Pressure [left ankle] 125/65 Blood Pressure [Left Arm] 135/70 Blood Pressure [Right Arm] 122/68 Blood Pressure [Standing] 117/69 Blood Pressure [Sitting] 115/64 Blood Pressure [Lying] 115/59 Blood Pressure 115/59 O2 Sat by Pulse Oximetry 98 Intake and Output: Intake & Output 09/17/18 09/18/18 09/19/18 09/20/18 11:59 11:59 11:59 11:59 Intake Total 2724.2 / 2724.2 4933.2 / 4933.2 3465 / 3465 Balance 2724.2 / 2724.2 4933.2 / 4933.2 3465 / 3465 - Physical Exam Oriented: Normal Eyes: Normal Ear: Normal Nose: Normal Throat: Normal Respiratory: Generalized, Diminished Cardiovascular: Normal. negative: S3, S4, Edema : Normal Auscultation: Bowel Sounds: Normal Palpation: Normal Tenderness: Normal Skin: Red (RIGHT UPPER ARM ), Tender Musculoskeletal: Right, Arm, Swelling, Tender Psychiatric: Normal Mood Description: Calm Affect: Normal Speech Pattern: Clear, Appropriate - Laboratory and Diagnostics Result Diagrams: 09/20/18 06:00 09/20/18 06:00 Labs: Laboratory WBC 6.4 X10^3/uL (3.6-10.0) 09/20/18 06:00 RBC 4.06 X10^6/uL (3.5-5.4) 09/20/18 06:00 Hgb 11.6 g/dL (12.0-16.0) L 09/20/18 06:00 Hct 35.2 % (36.0-47.0) L 09/20/18 06:00 MCV 86.8 fL (80.0-100.0) 09/20/18 06:00 MCH 28.6 pg (27.0-34.0) 09/20/18 06:00 MCHC 33.0 g/dL (33.0-35.0) 09/20/18 06:00 RDW 13.4 % (11.6-16.5) 09/20/18 06:00 Plt Count 267 X10^3/uL (150.0-450.0) 09/20/18 06:00 MPV 8.5 fL (7.4-11.0) 09/20/18 06:00 Neut % (Auto) 50.2 % (42.0-75.0) 09/20/18 06:00 Lymph % (Auto) 41.4 % (21.0-51.0) 09/20/18 06:00 [place] % (Auto) 7.0 % (0.0-13.0) 09/20/18 06:00 Eos % (Auto) 0.9 % (0.9-2.9) 09/20/18 06:00 Baso % (Auto) 0.5 % (0.2-1.0) 09/20/18 06:00 Neut # (Auto) 3.2 x10^3/uL (2.2-4.8) 09/20/18 06:00 Lymph # (Auto) 2.6 X10^3/uL (1.3-2.9) 09/20/18 06:00 [place] # (Auto) 0.5 x10^3/uL (0.3-0.8) 09/20/18 06:00 Eos # (Auto) 0.1 x10^3/uL (0.0-0.2) 09/20/18 06:00 Baso # (Auto) 0.0 X10^3/uL (0.0-0.1) 09/20/18 06:00 Absolute Nucleated RBC 0.1 /100WBC 09/20/18 06:00 ESR 20 MM/HOUR (0-20) 09/19/18 11:09 INR Target Range - 09/17/18 20:01 INR 1.01 (0.8-1.3) 09/17/18 20:01 APTT 120.8 SECONDS (22.9-36.5) H 09/19/18 04:45 PTT Comment - 09/19/18 04:45 Sodium 145 mmol/L (136-145) 09/20/18 06:00 Corrected Sodium TNP 09/20/18 06:00 Potassium 3.6 mmol/L (3.5-5.1) 09/20/18 06:00 Chloride 110 mmol/L (98-107) H 09/20/18 06:00 Carbon Dioxide 24.1 mmol/L (21-32) 09/20/18 06:00 BUN 9 mg/dL (7-18) 09/20/18 06:00 Creatinine 1.00 mg/dL (0.55-1.02) 09/20/18 06:00 Est GFR (MDRD) Af Amer > 60 (>60) 09/20/18 06:00 Est GFR (MDRD) Non-Af > 60 (>60) 09/20/18 06:00 Glucose 88 mg/dL (65-99) 09/20/18 06:00 Calcium 8.6 mg/dL (8.5-10.1) 09/20/18 06:00 Corrected Calcium 9.3 mg/dL (8.5-10.1) 09/20/18 06:00 Magnesium 1.7 mg/dL (1.7-2.9) 09/18/18 04:20 Total Bilirubin 0.10 mg/dL (0.2-1.0) L 09/20/18 06:00 AST 13 Units/L (15-37) L 09/20/18 06:00 ALT 20 Units/L (12-78) 09/20/18 06:00 Alkaline Phosphatase 20 Units/L (46-116) L 09/20/18 06:00 C-Reactive Protein 32.40 mg/L (0-3.0) H 09/19/18 11:09 Total Protein 6.4 g/dL (6.4-8.2) 09/20/18 06:00 Albumin 3.1 g/dL (3.4-5.0) L 09/20/18 06:00 Globulin 3.3 g/dL (2.5-4.5) 09/20/18 06:00 Albumin/Globulin Ratio 0.9 Ratio (1.1-2.1) L 09/20/18 06:00 Digoxin 0.51 ng/mL (0.9-2) L 09/18/18 13:15 - Plan (1) Pulmonary embolism Status: Acute Qualifiers: Pulmonary embolism type: saddle Chronicity: acute Acute cor pulmonale presence: without acute cor pulmonale Qualified Code(s): I26.92 - Saddle embolus of pulmonary artery without acute cor pulmonale Plan: XARELTO 15MG PO BID, CONTINUE TO MONITOR (2) Acute deep vein thrombosis (DVT) of right upper extremity Status: Deleted Qualifiers: Affected thrombotic vein of extremity: brachial Qualified Code(s): I82.621 - Acute embolism and thrombosis of deep veins of right upper extremity Plan: XARELTO 15MG PO BID, CONTINUE TO MONITOR (3) Deep vein thrombosis (DVT) of right lower extremity Status: Acute Qualifiers: Affected thrombotic vein of extremity: femoral Chronicity: acute Q ualified Code(s): I82.411 - Acute embolism and thrombosis of right femoral vein Plan: XARELTO 15MG PO BID, CONTINUE TO MONITOR (4) SOB (shortness of breath) Status: Acute (5) Hypotension Status: Resolved Qualifiers: Hypotension type: unspecified hypotension type Qualified Code(s): I95.9 - Hypotension, unspecified Plan: CONTINUE IV FLUIDS, CONTINUE TO MONITOR
[2018-09-20] MEDS: TRICOR TAB 145 MG PO SCH (09:15)
[2018-09-20] MEDS: REGLAN SYRUP 10 MG UDC PO SCH (09:15)
[2018-09-20] MEDS: BENTYL CAP 10 MG PO SCH (09:15)
[2018-09-20] MEDS: LEVOMILNACIPRAN PO SCH (09:16)
[2018-09-20] MEDS: PLAQUENIL PO SCH (09:16)
[2018-09-20] MEDS: XARELTO PO SCH (09:17)
[2018-09-20] MEDS: PriLOSEC PO SCH (09:17)
[2018-09-20] MEDS: ASPIRIN 81 MG CHEWTAB PO SCH (09:17)
[2018-09-20] MEDS: LANOXIN PO SCH (09:18)
[2018-09-20] MEDS: TOPIRAMATE PO SCH (09:19)
[2018-09-20 12:07] VITALS: BP 157/75
[2018-09-23 07:04] LABS: ANTI-NUCLEAR ANTIBODY TEST None Detected (None Detected)
[2018-09-23 07:06] LABS: ANTITHROMBIN III ACTIVITY 79 % (76-128); APC RESISTANCE 1.46 (>=2.00); PROTEIN C ACTIVITY 158 % (83-168)
[2018-09-24 06:24] LABS: PROTHROMBIN G20210A Negative
[2018-09-24 10:07] LABS: PTT-D HEPARIN NEUT 38
[2018-09-24 10:08] LABS: REPTILASE TIME 18.7; THROMBIN TIME 60.5
== END 2018-09-20 12:50 | disposition home or self-care (01) | DRG 299 ==
LOC: ICU 18:46
PROVIDERS: ADMIT Internal Medicine; ATTEND Internal Medicine
DX: R79.82 Elevated C-reactive protein (CRP); M79.601 Pain in right arm; I26.92 Saddle embolus of pulmonary artery without acute cor pulmonale; R06.02 Shortness of breath; I82.411 Acute embolism and thrombosis of right femoral vein; I95.89 Other hypotension; Z79.01 Long term (current) use of anticoagulants; M79.89 Other specified soft tissue disorders; I82.621 Acute embolism and thrombosis of deep veins of right upper extremity; E11.65 Type 2 diabetes mellitus with hyperglycemia
CPT/HCPCS: 36415; 71275; 80053; 80162; 81240; 82615; 83090; 83735; 84132; 85025; 85300; 85303; 85305; 85306; 85307; 85597; 85610; 85613; 85635; 85652; 85670; 85730; 85732; 86038; 86140; 86308; 93005; 93306; 93970; A4216; A4222; J1644; J3475; J7030; J7050; J7512